=== PATIENT | male | born 1955 | race Caucasian/White ===

== ENCOUNTER 2021-07-16 17:11 | Emergency (ER) | payer MEDICARE, OTHER ==
[2021-07-16 17:28] VITALS: BP 140/82; PULSE 94
[2021-07-16] MEDS ORDERED: Acetaminophen 500 MG Tab PO ONE (17:32)
[2021-07-16] MEDS ORDERED: Ondansetron 4 MG Tab.DIS PO ONE (17:32)
== END 2021-07-16 17:52 | disposition home or self-care (01) ==
LOC: KA.ED 17:11
DX: U07.1 COVID-19 (principal); Z79.82 Long term (current) use of aspirin; Z79.02 Long term (current) use of antithrombotics/antiplatelets; Z79.899 Other long term (current) drug therapy
CPT/HCPCS: 87804; 99283; A9270-GY; U0002